=== PATIENT | male | born 1955 | race Caucasian/White ===

== ENCOUNTER 2025-05-04 09:05 | Day surgery (SDC) | payer MEDICARE, BC ==
[2025-05-04] MEDS: Lactated Ringers 1,000 ML IV SCH (09:26)
[2025-05-04] MEDS ORDERED: Propofol 200 MG/20 ML SDV ONE ×2 (09:51→10:35)
[2025-05-04] MEDS ORDERED: Midazolam 1 MG/ML 2 ML SDV ONE (09:51)
[2025-05-04] MEDS ORDERED: fentaNYL 50 MCG/ML SDV ONE (09:51)
== END 2025-05-04 11:50 | disposition home or self-care (01) ==
LOC: JP.SDS 09:05
PROVIDERS: ATTEND Internal Medicine
DX: D12.2 Benign neoplasm of ascending colon (principal); D12.3 Benign neoplasm of transverse colon; K62.1 Rectal polyp; I10 Essential (primary) hypertension; E11.9 Type 2 diabetes mellitus without complications; E66.9 Obesity, unspecified; Z85.46 Personal history of malignant neoplasm of prostate; Z86.0100 Personal history of colon polyps, unspecified
CPT/HCPCS: 00811; 45380; 88305; J2250; J2704; J3010; J7120